=== PATIENT | male | born 1955 | race Caucasian/White ===

== ENCOUNTER 2019-08-02 11:45 | Outpatient (CLI) | payer BC ==
--- NOTE | 2019-08-02 13:50 | RAD ---
EXAM: 3 views of the right foot HISTORY: Foot pain COMPARISON: None FINDINGS: 3 views of the right foot shows no evidence of acute fracture or dislocation. No soft tissu e swelling is seen. No degenerative changes are present. IMPRESSION: No evidence of acute osseous abnormality.
== END 2019-08-02 11:46 | disposition home or self-care (01) ==
LOC: RAD-FRANK 11:45
PROVIDERS: ATTEND Nurse Practitioner Family
DX: M79.671 Pain in right foot (principal)

== ENCOUNTER 2019-08-18 04:58 | Outpatient (CLI) | payer BC, OTHER ==
[2019-08-19 12:33] LABS: SARS-CoV-2 MS2 Positive; SARS-CoV-2 N Gene Negative; SARS-CoV-2 S Gene Negative; SARS-CoV-2 orf1ab Negative
== END 2019-08-18 04:59 | disposition home or self-care (01) ==
LOC: LABBT 04:58
PROVIDERS: ATTEND Neurological Surgery
DX: Z01.812 Encounter for preprocedural laboratory examination (principal); Z11.59 Encounter for screening for other viral diseases; G56.01 Carpal tunnel syndrome, right upper limb
CPT/HCPCS: 87635; U0003

== ENCOUNTER 2019-08-23 06:08 | Day surgery (SDC) | payer BC ==
[2019-08-17 10:56] VITALS: BMI 26.4
--- NOTE | 2019-08-22 18:59 | HP ---
HISTORY OF PRESENT ILLNESS: Mr. Bansal is a pleasant 64-year-old man, known to our practice for an NCV performed with Dr. Roy back in 2016. He is referred to us now for progressive symptoms of bilateral carpal tunnel syndrome, right greater than left, and states he is starting to drop things at this time. Dr. Roy diagnosed him with carpal tunnel back then, but was not referred for additional treatment in 2016. The examination is deferred for COVNE-19 tele visit. PAST MEDICAL HISTORY: Chronic pain syndrome, arthritis. CURRENT MEDICATIONS: 1. Losartan. 2. Zyrtec. 3. Hydrochlorothiazide. 4. Aspirin. 5. Celebrex. ALLERGIES: NO KNOWN DRUG ALLERGIES. PAST SURGICAL HISTORY: Left knee meniscectomy, bilateral ACL reconstructions, bilateral knee arthroscopy, lumbar spinal fusion. ASSESSMENT: Bilateral carpal tunnel syndrome. PLAN: Dr. Blackwood met with the patient, reviewed imaging, and advocated for a right carpal tunnel release. He explained to the patient the risks, benefits, and alternatives of the procedure. The patient expressed understanding and elected to move forward with surgery as discussed. I do believe the patient is mentally competent and capable of making medical decisions for himself. We will move forward with surgery as planned. Job ID: [id number]
[2019-08-23] MEDS ORDERED: Lidocaine 1% w/Epinephrine 1:100K 20 ML VIAL ONE (07:06)
[2019-08-23] MEDS ORDERED: Fentanyl 100 MCG/2 ML VIAL ONE (08:01)
[2019-08-23] MEDS ORDERED: Midazolam HCl 2 mg/2 ml Vial ONE (08:02)
--- NOTE | 2019-08-23 09:04 | OP ---
DATE OF PROCEDURE: 08/23/2019 METEOROLOGICAL AIDE: Festus Torres PA-C INDICATION: Pain. DIAGNOSIS: Carpal tunnel syndrome. PROCEDURE PERFORMED: Right carpal tunnel release. ANESTHESIA: TIVA and local. DESCRIPTION OF PROCEDURE: The patient was brought into the operating room and placed under general anesthesia. His right arm was extended perpendicular to the body and prepped up to the level of the axilla. After prepping and draping and after an appropriate pause, a linear incision was planned across the crease of the wrist in line with the long axis of the fourth digit. This area was infiltrated with Marcaine. An incision was then created, and a self-retaining retractor was placed. The carpal tunnel ligament was subsequently identified and incised. The incision was extended in proximal and distal directions until the contents of the carpal tunnel were decompressed. The wound was then irrigated. Hemostasis was maintained throughout. The wound was then closed in anatomic layers, and a pressure dressing was applied. There were no known procedural complications. Job ID: [id number]
[2019-08-23] MEDS ORDERED: HYDROcodone/Acetaminophen 5/325 mg Tablet ONE ×2 (09:24→09:26)
[2019-08-23] MEDS ORDERED: Glycopyrrolate 0.2 MG/ML 5 ML SYRINGE ONE (11:20)
[2019-08-23] MEDS ORDERED: PROPOFOL 200 MG/20 ML VIAL ONE (11:20)
== END 2019-08-23 09:35 | disposition home or self-care (01) ==
LOC: SDC 06:08
PROVIDERS: ATTEND Neurological Surgery
PROC: 01N50ZZ Release Median Nerve, Open Approach (ICD-10-PCS; principal; 2019-08-23)
DX: G56.03 Carpal tunnel syndrome, bilateral upper limbs (principal); G89.4 Chronic pain syndrome; M19.90 Unspecified osteoarthritis, unspecified site; Z79.82 Long term (current) use of aspirin; Z79.899 Other long term (current) drug therapy
CPT/HCPCS: 93005; 93010; J0690; J2250; J2704; J3010

== ENCOUNTER 2021-01-30 09:52 | Outpatient (CLI) | payer BC ==
[2021-01-30 11:56] LABS: Bilirubin Neg (Negative); Blood, Urine Negative (Negative); Clarity Clear (Clear); Glucose, Urine (Dipstick) Normal (Negative); Ketone, Urine Negative (Negative); Leukocyte Negative (Negative); Nitrite Negative (Negative); Protein, Urine (Dipstick) Negative (Neg-Trace); Specific Gravity, Urine 1.015 (1.002-1.036); Urobilinogen Normal mg/dL (Less than 2)
[2021-01-30 12:01] LABS: #Basophils 0.1 10x3/uL (0.0-0.2); #Eosinphils 0.3 10x3/uL (0.0-0.5); #Monocytes 0.8 10x3/uL (0.0-1.1); #Neutrophils 4.8 10x3/uL (1.5-8.4); %Basophils 1.1 % (0.0-2.0); %Lymphocytes 34.3 % (18.0-47.0); %Neutrophils 52.2 % (40.0-75.0); Mean Corpuscular HGB CONC 33.1 g/dL (32.0-36.0); Mean Corpuscular Volume 96.8 fl (81.2-95.1); Mean Platelet Volume 10.7 fl (7.4-10.4); Platelet Count 328 10x3/uL (150-450); RBC Distribution Width 14.7 % (11.5-14.5); Red Blood Cell (RBC) Count 4.06 10x6/uL (4.32-5.72); White Blood Cell (WBC) Count 9.2 10x3/uL (3.5-10.5)
[2021-01-30 17:34] LABS: SARS-CoV-2 PCR by NAA Not Detected (NotDetected)
== END 2021-01-30 09:53 | disposition home or self-care (01) ==
LOC: LABBT 09:52
PROVIDERS: ATTEND Orthopaedic Surgery Hand Surgery
DX: Z01.818 Encounter for other preprocedural examination (principal); Z20.822 Contact with and (suspected) exposure to COVID-19
CPT/HCPCS: 81003; 85025; 93005; 93010; U0003; U0005

== ENCOUNTER 2021-02-04 10:48 | Observation (INO) | payer BC ==
[2021-02-04] MEDS ORDERED: ceFAZolin 2 GM/DEX 5% 100 ML BAG ONE (11:46)
[2021-02-04] MEDS ORDERED: Neomycin-Polymyxin 1 ML AMP ONE (11:56)
[2021-02-04] MEDS ORDERED: Bacitracin Zinc Ointment 30 gm TUBE ONE (11:56)
[2021-02-04] MEDS ORDERED: Betamet Acet/Betamet Na Ph 30 MG/5 ML VIAL ONE (11:57)
[2021-02-04] MEDS ORDERED: Bupivacaine PF 0.5% 30 ML VIAL ONE ×2 (11:57→13:38)
[2021-02-04] MEDS ORDERED: Fentanyl 100 MCG/2 ML VIAL ONE ×5 (12:51→18:15)
[2021-02-04] MEDS ORDERED: PROPOFOL 200 MG/20 ML VIAL ONE (13:09)
[2021-02-04] MEDS ORDERED: Ondansetron PF 4 MG/2 ML Vial ONE (13:09)
[2021-02-04] MEDS ORDERED: Dexamethasone 20 MG/5 ML VIAL ONE (13:09)
[2021-02-04] MEDS ORDERED: Lidocaine 1% PF 5 ML VIAL ONE (13:09)
[2021-02-04] MEDS ORDERED: Ketorolac Tromethamine 30 MG/ML VIAL ONE (17:16)
[2021-02-04] MEDS ORDERED: Milk Of Magnesia 30 ML UDCUP PO PRN (19:21)
[2021-02-04] MEDS ORDERED: traMADol HCl 50 MG TAB PO PRN (19:21)
[2021-02-04] MEDS ORDERED: Bisacodyl 10 MG SUPP PR PRN (19:21)
[2021-02-04] MEDS ORDERED: Acetaminophen 325 MG TAB PO PRN (19:21)
[2021-02-04] MEDS ORDERED: Fentanyl 100 MCG/2 ML VIAL SLOW IVP PRN (19:21)
[2021-02-04] MEDS ORDERED: Ondansetron PF 4 MG/2 ML Vial IVP PRN (19:21)
[2021-02-04] MEDS ORDERED: Meperidine HCl/PF 25 MG/ML VIAL IM PRN (19:24)
[2021-02-04] MEDS ORDERED: Communication Order-Pharmacy FS SCH (19:30)
[2021-02-04] MEDS ORDERED: TETANUS AND DIPHTHERIA TOX/PF 0.5 ML DISP.SYRIN IM SCH (19:30)
[2021-02-04] MEDS: HYDROcodone/Acetaminophen 5/325 mg Tablet PO PRN (21:10)
[2021-02-04] MEDS: Aspirin 81 mg Enteric Coated Tablet PO SCH (21:10)
[2021-02-04] MEDS: VANCOMYCIN 1.25 GM/250 ML BAG 1.25 GM in Premix Bag 1 BAG IVPB SCH (21:10)
[2021-02-04] MEDS: Sodium Chloride 0.9% 1,000 ML IV SCH (21:18)
[2021-02-04] MEDS: Morphine 4 MG/ML VIAL SLOW IVP PRN (22:28)
[2021-02-05] MEDS: HYDROcodone/Acetaminophen 5/325 mg Tablet PO PRN ×5 (02:09→20:57)
[2021-02-05 06:17] LABS: Anion Gap 12 mmol/L (10-20); BUN (Urea Nitrogen) 15 mg/dL (8.4-25.7); Calc. Creatinine Clearance 79 mL/min (70-130); Calcium 8.5 mg/dL (7.8-10.44); Carbon Dioxide 23 mmol/L (23-31); Chloride 105 mmol/L (98-107); Glucose 201 mg/dL (80-115); Potassium 3.9 mmol/L (3.5-5.1); Sodium 136 mmol/L (136-145)
[2021-02-05] MEDS: Sodium Chloride 0.9% 1,000 ML IV SCH ×2 (06:43→16:16)
[2021-02-05] MEDS: Aspirin 81 mg Enteric Coated Tablet PO SCH ×2 (09:32→20:56)
[2021-02-05] MEDS: VANCOMYCIN 1.25 GM/250 ML BAG 1.25 GM in Premix Bag 1 BAG IVPB SCH ×2 (10:02→22:00)
[2021-02-05] MEDS: Morphine 4 MG/ML VIAL SLOW IVP PRN ×2 (13:53→18:03)
[2021-02-05] MEDS ORDERED: Temazepam 15 MG CAP PO PRN (19:02)
[2021-02-06] MEDS: Sodium Chloride 0.9% 1,000 ML IV SCH ×2 (04:42→16:31)
[2021-02-06] MEDS: HYDROcodone/Acetaminophen 5/325 mg Tablet PO PRN ×2 (05:43→10:17)
[2021-02-06] MEDS: Morphine 4 MG/ML VIAL SLOW IVP PRN ×2 (07:41→13:16)
[2021-02-06] MEDS: Aspirin 81 mg Enteric Coated Tablet PO SCH (07:47)
[2021-02-06 08:58] LABS: Vancomycin, Trough 16.8 ug/mL
[2021-02-06] MEDS: VANCOMYCIN 1.25 GM/250 ML BAG 1.25 GM in Premix Bag 1 BAG IVPB SCH (11:17)
[2021-02-06 12:10] VITALS: BP 142/71; TEMP 98.5
[2021-02-06 20:03] VITALS: BMI 25.0
== END 2021-02-06 15:55 | disposition home or self-care (01) ==
LOC: SDC 10:48 → SURG B 19:21
PROVIDERS: ADMIT Orthopaedic Surgery Hand Surgery; ATTEND Orthopaedic Surgery Hand Surgery
PROC: 01N50ZZ Release Median Nerve, Open Approach (ICD-10-PCS; principal; 2021-02-04)
PROC: 01N50ZZ Release Median Nerve, Open Approach (ICD-10-PCS; 2021-02-04)
PROC: 01U50JZ Supplement Median Nerve with Synthetic Substitute, Open Approach (ICD-10-PCS; 2021-02-04)
PROC: 0RBP0ZZ Excision of Left Wrist Joint, Open Approach (ICD-10-PCS; 2021-02-04)
PROC: 0PTN0ZZ Resection of Left Carpal, Open Approach (ICD-10-PCS; 2021-02-04)
DX: M19.132 Post-traumatic osteoarthritis, left wrist (principal); G56.02 Carpal tunnel syndrome, left upper limb; G56.12 Other lesions of median nerve, left upper limb; M65.88 Other synovitis and tenosynovitis, other site; M24.032 Loose body in left wrist; I10 Essential (primary) hypertension; F17.200 Nicotine dependence, unspecified, uncomplicated; L03.818 Cellulitis of other sites; Z79.899 Other long term (current) drug therapy; Z88.8 Allergy status to other drugs, medicaments and biological substances
CPT/HCPCS: 36415; 76000; 80048; 80202; 88305; 89060; 96365; 96366; 96375; 96376; C1713; G0378; J0702; J1100; J1885; J2270; J2405; J2704; J3010; J3370; J7050; S0020